=== PATIENT | male | born 1955 | race Caucasian/White ===

== ENCOUNTER 2023-05-31 09:15 | Inpatient (IN) ==
[2023-05-14 16:17] LABS: Appearance,Urine CLEAR (Clear); Bilirubin,Urine Negative (Negative); Color,Urine YELLOW; Culture Indicated,Urine No; Glucose,Urine (UA) Negative (Negative); Ketones,Urine Negative (Negative); Leukocyte Esterase,Urine Negative /uL (Negative); Nitrate,Urine Negative (Negative); Protein,Urine Negative (Negative); Specific Gravity,Urine 1.023 (1.000-1.035); Urine Blood Negative (Negative); Urobilinogen,Urine Negative
[2023-05-14 16:23] LABS: Basophils # (Auto) 0.07 K/mcL (0.00-0.30); Basophils % (Auto) 1.2 % (0.0-2.0); Eosinophils # (Auto) 0.23 K/mcL (0.00-0.70); Hematocrit 46.8 % (40.1-51.0); Hemoglobin 15.4 g/dL (13.7-17.5); Lymphocytes % (Auto) 31.5 % (15.5-49.0); Mean Cell Volume 90.3 fL (80.0-100.0); Mean Corpuscular HGB Conc 32.9 g/dL (31.0-36.0); Mean Platelet Volume 11.4 fL (8.8-12.5); Monocytes # (Auto) 0.53 K/mcL (0.10-0.90); Monocytes % (Auto) 9.3 % (1.0-12.0); Neutrophils % (Auto) 53.8 % (38.0-78.0); Platelet Count 188 K/mcL (140-440); RBC 5.18 M/mcL (4.63-6.08); Red Cell Distribution Width 12.8 % (11.5-14.5); WBC 5.7 K/mcL (4.5-11.0)
[2023-05-14 16:26] LABS: Partial Thromboplastin Time 27.5 sec (20.0-37.0)
[2023-05-14 16:27] LABS: Prothrombin Time 13.8 sec (11.9-14.5)
[2023-05-14 17:06] LABS: Blood Urea Nitrogen 17 mg/dL (8-23); Calcium 9.1 mg/dL (8.6-10.4); Carbon Dioxide 24 mmol/L (22-30); Chloride 104 mmol/L (96-108); Glomerular Filtration Rate 92; Glucose 91 mg/dL (70-105)
[2023-05-14 18:04] LABS: Estimated Average Glucose(eAG) 114 mg/dL; Hemoglobin A1C 5.6 % Hgb (4.0-6.0)
[~2023-05-31 09:15] MED LIST: ROCURONIUM 10 MG/ML ML IV ONE; TRANEXAMIC ACID 1,000 MG/10 ML VIAL ONE
[2023-06-03] MEDS ORDERED: PREGABALIN 75 MG CAPSULE PO SCH (06:00)
[2023-06-03] MEDS ORDERED: ACETAMINOPHEN 500 MG TABLET PO SCH (06:00)
[2023-06-03] MEDS ORDERED: CELECOXIB 200 MG CAPSULE PO SCH (06:00)
[2023-06-03] MEDS ORDERED: ceFAZolin 2 GM in DEXTROSE 5% IN WATER 50 ML IV SCH (06:00)
[2023-06-03] MEDS ORDERED: TRANEXAMIC ACID 1,000 MG/10 ML VIAL ONE (06:00)
[2023-06-03] MEDS ORDERED: ROCURONIUM 10 MG/ML ML IV ONE ×2 (06:00)
[2023-06-03] MEDS ORDERED: oxyCODONE 10 MG TAB.ER.12H PO SCH (06:00)
[2023-06-03] MEDS ORDERED: LIDOCAINE 2% PF 5 ML VIAL ONE (08:11)
[2023-06-03] MEDS ORDERED: DEXAMETHASONE 10 MG/ML VIAL ONE (08:11)
[2023-06-03] MEDS ORDERED: PROPOFOL 200 MG/20 ML VIAL IV ONE (08:16)
[2023-06-03] MEDS ORDERED: fentaNYL 100 MCG/2 ML VIAL IV ONE (08:16)
[2023-06-03] MEDS ORDERED: ONDANSETRON 4 MG/2 ML VIAL ONE (10:02)
[2023-06-03] MEDS ORDERED: HYDROcodone/APAP 10/325MG TABLET PO PRN (10:05)
[2023-06-03] MEDS ORDERED: KETOROLAC 15 MG/ML VIAL IV PRN (10:05)
[2023-06-03] MEDS ORDERED: ACETAMINOPHEN 325 MG TABLET PO PRN (10:05)
[2023-06-03] MEDS ORDERED: HYDROmorphone 1 MG/ML SYRINGE IV PRN (10:05)
[2023-06-03] MEDS ORDERED: diphenhydrAMINE 50 MG/ML VIAL IV PRN (10:44)
[2023-06-03] MEDS ORDERED: fentaNYL 100 MCG/2 ML VIAL IV PRN (10:44)
[2023-06-03] MEDS ORDERED: MEPERIDINE 25 MG/ML VIAL IV PRN (10:44)
[2023-06-03] MEDS ORDERED: METHOCARBAMOL 1,000 MG/10 ML VIAL IV PRN (10:44)
[2023-06-03] MEDS ORDERED: PROMETHAZINE 25 MG/ML VIAL IV PRN (10:44)
[2023-06-03] MEDS ORDERED: HYDROmorphone 0.5 MG/0.5 ML SYRINGE IV PRN (10:44)
[2023-06-03] MEDS ORDERED: ONDANSETRON 4 MG/2 ML VIAL IV PRN (10:44)
[2023-06-03] MEDS ORDERED: LACTATED RINGERS 250 ML IV PRN (10:44)
[2023-06-03] MEDS ORDERED: NALOXONE HCL 0.4 MG/ML VIAL IV PRN (10:44)
[2023-06-03] MEDS ORDERED: IPRATROPIUM/ALBUTEROL 3 ML AMPUL.NEB NEB PRN (10:44)
[2023-06-03] MEDS ORDERED: LACTATED RINGERS 1,000 ML IV SCH (10:45)
[2023-06-03] MEDS: ceFAZolin 1 GM VIAL IV SCH (18:12)
[2023-06-03] MEDS: CLOBETASOL PROPIONATE 1 DOSE TUBE TOPICAL SCH (21:57)
[2023-06-04] MEDS: ceFAZolin 1 GM VIAL IV SCH (02:22)
[2023-06-04] MEDS: CLOBETASOL PROPIONATE 1 DOSE TUBE TOPICAL SCH (08:42)
[2023-06-04] MEDS ORDERED: ATORVASTATIN 10 MG TABLET PO SCH (09:00)
[2023-06-04] MEDS ORDERED: NIFEdipine 30 MG TAB.XL.24H PO SCH (09:00)
[2023-06-04] MEDS ORDERED: VITAMIN D3 125 MCG TABLET PO SCH (09:00)
[2023-06-04] MEDS ORDERED: IBUPROFEN 800 MG TABLET PO SCH (09:00)
[2023-06-04] MEDS ORDERED: ASPIRIN 81 MG TAB.CHEW PO SCH (09:00)
[2023-06-04] MEDS ORDERED: CYANOCOBALAMIN (VITAMIN B-12) 500 MCG TABLET PO SCH (09:00)
[2023-06-04] MEDS ORDERED: ZINC SULFATE 50 MG CAPSULE PO SCH (09:00)
== END 2023-06-04 10:21 | disposition home or self-care (01) | DRG 483 ==
LOC: MEDSUR 06-03 07:01
PROVIDERS: ADMIT Orthopaedic Surgery; ATTEND Orthopaedic Surgery